=== PATIENT | male | born 1995 | race Caucasian/White ===

== ENCOUNTER 2018-02-06 13:55 | Emergency (ER) | payer MEDICAID ==
[~2018-02-06] VITALS: Ht 177.8 cm; Wt 93.0 kg
[2018-02-06 14:08] VITALS: BP_SYST 130
[2018-02-06 15:24] LABS: BASOPHILS # (AUTO) 0.1 K/uL (0.0-0.2); EOSINOPHILS # (AUTO) 0.1 K/uL (0.0-0.4); EOSINOPHILS % (AUTO) 1.2 % (0.0-4.0); HEMATOCRIT 44.1 % (36-54); HEMOGLOBIN 14.2 g/dL (14.0-18.0); LYMPHOCYTES % (AUTO) 13.7 % (20.5-51.5); MEAN CORPUSCULAR HEMOGLOBIN 27 pg (27-31); MEAN CORPUSCULAR HGB CONC 32 % (32-36); MEAN CORPUSCULAR VOLUME 85 fL (79.0-98.0); MONOCYTES # (AUTO) 1.1 K/uL (0.0-1.0); MONOCYTES % (AUTO) 15.3 % (1.7-9.3); NEUTROPHILS # (AUTO) 4.6 K/uL (1.8-7.7); NEUTROPHILS % (AUTO) 68.8 % (40.0-70.0); PLATELET COUNT (AUTO) 216 K/uL (130-430); RED BLOOD CELL COUNT(AUTO) 5.19 MIL/uL (4.2-6.2); RED CELL DISTRIBUTION WIDTH 12.6 % (9.0-15.0); WHITE BLOOD COUNT (AUTO) 6.9 K/uL (4.8-10.8)
[2018-02-06] MEDS ORDERED: LORazepam 2 MG/ML VIAL IVP PRN (15:30)
[2018-02-06] MEDS ORDERED: D5/0.45 NS 1,000 ML IV ONE (15:30)
[2018-02-06 15:37] LABS: CALCIUM 9.3 mg/dL (8.4-11.0); CREATININE 0.7 mg/dL (0.55-1.30); POTASSIUM 4.3 mmol/L (3.5-5.1)
[2018-02-06 15:42] LABS: ALBUMIN 4.1 g/dL (3.4-4.8); TOTAL BILIRUBIN 0.6 mg/dL (0.0-1.0)
[2018-02-06 16:00] VITALS: BP_SYST 130
== END 2018-02-06 16:00 | disposition home or self-care (01) ==
LOC: SED 13:55
DX: R21 Rash and other nonspecific skin eruption (principal); Z11.3 Encounter for screening for infections with a predominantly sexual mode of transmission; R03.0 Elevated blood-pressure reading, without diagnosis of hypertension; J45.909 Unspecified asthma, uncomplicated
CPT/HCPCS: 36415; 80053; 85025; 86592; 99284

== ENCOUNTER 2018-11-07 00:15 | Emergency (ER) | payer MEDICAID ==
[~2018-11-07] VITALS: Ht 180.3 cm; Wt 102.1 kg
[2018-11-07 00:20] VITALS: BP_SYST 120
--- NOTE | 2018-11-07 00:20 | NUR ---
Patient to ER [facility] for evaluation. Side rails up.
--- NOTE | 2018-11-07 00:25 | NUR ---
Pt C/O RT great toe pain. Pt reports cutting his nails approximately 10 days ago and started to experience pain. Pain has gotten progressively worse and is a 10/10 on palpation. Denies any other symptoms at this time. Will continue to monitor.
--- NOTE | 2018-11-07 01:35 | NUR ---
ER Dr. Plascencia at bedside examining patient.
[2018-11-07] MEDS ORDERED: BACITRACIN ZINC 15 GM TOPICAL OINTMENT TP ONE (01:45)
[2018-11-07] MEDS ORDERED: KETOROLAC TROMETHAMINE 60 MG/2 ML VIAL IM ONE (01:45)
[2018-11-07] MEDS ORDERED: LIDOCAINE 1% 10 MG/ML, 20 ML MDV INJ ONE (01:45)
[2018-11-07] MEDS ORDERED: cefTRIAXone 1 GM VIAL IM ONE (01:45)
--- NOTE | 2018-11-07 02:04 | NUR ---
Pt has been medicated and provided verbal discharge teaching by Dr. Plascencia on the care of his toe
[2018-11-07 02:17] VITALS: BP_SYST 120
--- NOTE | 2018-11-07 02:19 | NUR ---
Patient given written and verbal discharge instructions and verbalizes understanding. ER MD discussed with patient the results and treatment provided. Patient in stable condition. ID arm band removed. Rx of Keflex, Ibuprofen, and [place] given. Patient educated on pain management and to follow up with PMD. Pain Scale 0/10. Opportunity for questions provided and answered. Medication side effect fact sheet provided.
== END 2018-11-07 02:19 | disposition home or self-care (01) ==
LOC: SED 00:15
DX: L03.031 Cellulitis of right toe (principal); J45.909 Unspecified asthma, uncomplicated
CPT/HCPCS: 96372; 99283; J0696; J1885; J2001

== ENCOUNTER 2023-06-26 22:38 | Emergency (ER) | payer MEDICAID ==
[~2023-06-26] VITALS: Ht 177.8 cm; Wt 97.5 kg
[2023-06-26 22:45] VITALS: BP_SYST 127; PULSE 131; RESP 20; TEMP 97.9; O2SAT 98
[2023-06-26 23:43] LABS: BASOPHILS % (AUTO) 0.5 % (0.0-2.0); EOSINOPHILS # (AUTO) 0.1 K/uL (0.0-0.4); EOSINOPHILS % (AUTO) 0.9 % (0.0-4.0); HEMATOCRIT 40.8 % (36-54); HEMOGLOBIN 14.2 g/dL (14.0-18.0); LYMPHOCYTES # (AUTO) 2.2 K/uL (1.0-5.5); MEAN CORPUSCULAR HEMOGLOBIN 29 pg (27-31); MEAN CORPUSCULAR HGB CONC 35 % (32-36); MEAN CORPUSCULAR VOLUME 83 fL (79.0-98.0); MONOCYTES # (AUTO) 0.8 K/uL (0.0-1.0); MONOCYTES % (AUTO) 10.4 % (1.7-9.3); NEUTROPHILS # (AUTO) 4.8 K/uL (1.8-7.7); NEUTROPHILS % (AUTO) 60.2 % (40.0-70.0); PLATELET COUNT (AUTO) 259 K/uL (130-430); RED BLOOD CELL COUNT(AUTO) 4.94 MIL/uL (4.2-6.2); RED CELL DISTRIBUTION WIDTH 13.5 % (9.0-15.0)
[2023-06-26 23:57] LABS: ANION GAP 9 (5-15); CALCIUM 8.8 mg/dL (8.4-11.0); CARBON DIOXIDE 29 mmol/L (23-29); CHLORIDE 99 mmol/L (98-107); CREATININE 0.88 mg/dL (0.55-1.30); GFR AFRICAN AMERICAN 132 mL/min (>90); GLUCOSE 115 mg/dL (74-106); POTASSIUM 3.6 mmol/L (3.5-5.1); SODIUM SERUM 137 mmol/L (136-145); UREA NITROGEN, BLOOD 11 mg/dL (8-21)
[2023-06-27 00:11] LABS: FREE T4 (FREE THYROXINE) 1.1 ng/dL (0.6-1.6); THYROID STIMULATING HORMONE 0.68 uIu/mL (0.34-4.82)
[2023-06-27 00:16] LABS: GFR NON AFRICAN-AMERICAN 109 mL/min (>90)
[2023-06-27] MEDS: LORazepam 2 MG/ML VIAL IVP ONE (00:30)
[2023-06-27 00:33] LABS: BILIRUBIN,URINE NEGATIVE (NEGATIVE); BLOOD, URINE NEGATIVE (NEGATIVE); CLARITY/URINE SL CLOUDY (CLEAR); COLOR,URINE YELLOW (YELLOW); GLUCOSE,URINE NEGATIVE (NEGATIVE); KETONES,URINE NEGATIVE (NEGATIVE); LEUKOCYTE ESTERASE ,URINE NEGATIVE (NEGATIVE); NITRITE, URINE NEGATIVE (NEGATIVE); PROTEIN URINE NEGATIVE (NEGATIVE); UROBILINOGEN,URINE 0.2 (0.2-1.0)
[2023-06-27] MEDS: NACL 0.9% 1,000 ML IV ONE (00:33)
[2023-06-27 00:42] LABS: BARBITURATE, URINE NEGATIVE (NEG <=200); BENZODIAZEPINE, URINE NEGATIVE (NEG <=150); CANNABINOID, URINE POSITIVE (NEG <=50); COCAINE, URINE NEGATIVE (NEG <=150); METHAMPHETAMINES SCREEN,URINE NEGATIVE (NEG <=500); OPIATE, URINE NEGATIVE (NEG <=100); PHENCYCLIDINE SCREEN,URINE NEGATIVE (NEG <=25); URINE AMPHETAMINE NEGATIVE (NEG <=500); URINE METHADONE NEGATIVE (NEG <=200); URINE OXYCODONE SCREEN NEGATIVE (NEG <=100)
[2023-06-27 00:43] LABS: UR TRICYCLIC ANTIDEPRESSANTS NEGATIVE (NEG <=300)
[2023-06-27] MEDS ORDERED: LORA-258 PO (01:32)
[2023-06-27 01:47] VITALS: BP_SYST 111; PULSE 109; RESP 16; TEMP 98; O2SAT 97
== END 2023-06-27 01:44 | disposition home or self-care (01) ==
LOC: SED 22:38
DX: F12.10 Cannabis abuse, uncomplicated (principal); R00.2 Palpitations; G47.00 Insomnia, unspecified; R51.9 Headache, unspecified; J45.909 Unspecified asthma, uncomplicated; Z79.899 Other long term (current) drug therapy
CPT/HCPCS: 99285; 71045; 80307; 80048; 81001; 83880; 84439; 84443; 85025; 84484; 36415; 93005; 81003; 96374; 96361; J2060; J7030